=== PATIENT | female | born 1955 | race African-American/Black ===

== ENCOUNTER 2023-06-30 08:01 | Emergency (ER) | payer BC, OTHER ==
[~2023-06-30] VITALS: Ht 170.2 cm; Wt 70.5 kg
[2023-06-30 08:07] VITALS: O2SAT 100
[2023-06-30 08:54] LABS: BASOPHILS % 0.6 % (0.0-2.0); DIFFERENTIAL COMMENT 0; EOSINOPHILS % 1.1 % (0.0-5.0); HEMATOCRIT. 34.8 % (36.0-48.0); MEAN CORPUSCULAR HGB CONC 31.8 g/dL (31.0-37.0); MEAN CORPUSCULAR VOLUME 78.7 fL (81.0-99.0); MEAN PLATELET VOLUME 8.3 fl (7.4-10.4); MONOCYTES % 9.3 % (2.0-8.0); PLATELET 409 x1000/uL (130-400); RED BLOOD CELL COUNT 4.42 mill/uL (4.2-5.4); RED CELL DISTRIBUTION WIDTH 15.9 % (11.6-14.6); WHITE BLOOD COUNT 6.3 x1000/uL (4.5-11.0)
[2023-06-30 09:14] LABS: ALANINE AMINOTRANSFERASE 24 IU/L (10-49); ALBUMIN 4.8 g/dL (3.2-4.8); ASPARTATE AMINOTRANSFERASE 30 IU/L (<34); BILIRUBIN TOTAL 0.2 mg/dL (0.1-1.0); CALCIUM 9.1 mg/dL (8.7-10.4); CARBON DIOXIDE 27 mEq/L (21-32); CHLORIDE 105 mEq/L (98-107); CREATININE 0.7 mg/dL (0.6-1.0); GLUCOSE 147 mg/dL (70-105); POTASSIUM 3.5 mEq/L (3.5-5.1); PROTEIN TOTAL 8.1 g/dL (6.0-8.3); SODIUM 137 mEq/L (136-145); TROPONIN I HIGH SENSITIVITY 4 ng/L (3.0-34); UREA NITROGEN BLOOD 10 mg/dL (9-23)
[2023-06-30 10:01] VITALS: BP 132/73; PULSE 91; RESP 10; TEMP 98.8
== END 2023-06-30 10:02 | disposition home or self-care (01) ==
LOC: ER 08:01
DX: I47.10 Supraventricular tachycardia, unspecified (principal); J45.909 Unspecified asthma, uncomplicated; E11.9 Type 2 diabetes mellitus without complications; I10 Essential (primary) hypertension; Z88.1 Allergy status to other antibiotic agents
CPT/HCPCS: 36415; 71045; 80053; 83880; 84484; 85025; 93005; 99285

== ENCOUNTER 2023-08-31 17:36 | Emergency (ER) | payer BC ==
[~2023-08-31] VITALS: Ht 160 cm; Wt 75.0 kg
[2023-08-31 17:45] VITALS: BP 174/88; PULSE 105; RESP 18; TEMP 98.5; O2SAT 100
[2023-08-31] MEDS ORDERED: HYDR30CR7 TP (18:17)
== END 2023-08-31 18:35 | disposition home or self-care (01) ==
LOC: ER 17:36
DX: L24.9 Irritant contact dermatitis, unspecified cause (principal); M79.89 Other specified soft tissue disorders; J45.909 Unspecified asthma, uncomplicated; E11.9 Type 2 diabetes mellitus without complications; I10 Essential (primary) hypertension
CPT/HCPCS: 99281; 99282